=== PATIENT | female | born 1995 | race Caucasian/White ===

== ENCOUNTER 2019-10-22 18:10 | Emergency (ER) | payer SELFPAY ==
--- NOTE | 2019-10-22 18:52 | EDM.PDOC ---
ED HPI GENERAL MEDICAL PROBLEM - General Chief Complaint: Lower Extremity Injury/Pain Stated Complaint: LEFT LEG PAIN Time Seen by Provider: 10/22/19 18:47 Source of Information: Reports: Patient History Limitations: Reports: No Limitations - History of Present Illness INITIAL COMMENTS - FREE TEXT/NARRATIVE: HISTORY AND PHYSICAL: History of present illness: Patient is a 24-year-old female presents to the ED With complaint of left knee pain. Patient states she fell in the shower 2 days ago landing on the inside of the knee. She states she is hardly able to bear weight on the left. She denies proximal hip pain or distal pain, numbness or tingling. Review of systems: As per history of present illness and below otherwise all systems reviewed and negative. Past medical history: As per history of present illness and as reviewed below otherwise noncontributory. Surgical history: As per history of present illness and as reviewed below otherwise noncontributory. Social history: No reported history of drug or alcohol abuse. Family history: As per history of present illness and as reviewed below otherwise noncontributory. Physical exam: General: Patient sitting comfortably in no acute distress and nontoxic appearing HEENT: Atraumatic, normocephalic, pupils reactive, negative for conjunctival pallor or scleral icterus, mucous membranes moist, throat clear, neck supple, nontender, trachea midline. No meningeal signs. Lungs: Clear to auscultation, breath sounds equal bilaterally, chest nontender. Heart: S1S2, regular, negative for clicks, rubs, or overt murmur. Abdomen: Soft, nondistended, nontender. Negative for masses or hepatosplenomegaly. Negative for costovertebral tenderness. No rigidity, rebound , guarding. Pelvis: Stable nontender. Genitourinary: Deferred. Rectal: Deferred. Extremities: No obvious swelling or deformity, skin is intact. Pain to palpation of anterior knee. negative for cords or calf pain. Neurovascular unremarkable. Neuro: Awake, alert, oriented. Cranial nerves II through XII unremarkable. Cerebellum unremarkable. Motor and sensory unremarkable throughout. Exam nonfocal. Notes: Diagnostics: x-ray left knee Therapeutics: Crutches Prescriptions: none Impression: Left knee injury Plan: 1. Ice, elevate, and motrin or tylenol as needed 2. Follow up with orthopedics, please call the number provided to schedule an appointment 3. Return to ED as needed as discussed Definitive disposition and diagnosis as appropriate pending reevaluation and review of above. left knee Pain Score (Numeric/FACES): 10 - Related Data Allergies Allergy/AdvReac Type Severity Reaction Status Date / Time No Known Allergies Allergy Verified 10/22/19 18:25 Home Meds: Home Meds . [No Known Home Meds] 10/22/19 [History] Past Medical History - Past Health History Medical/Surgical History: Denies Medical/Surgical History Respiratory History: Reports: Asthma Social & Family History - Family History Family Medical History: Noncontributory - Tobacco Use Smoking Status *Q: Current Every Day Smoker Years of Tobacco use: 2 Packs/Tins Daily: 0.5 - Recreational Drug Use Recreational Drug Use: No Review of Systems - Review of Systems Review Of Systems: Comprehensive ROS is negative, except as noted in HPI. ED EXAM, GENERAL - Physical Exam Exam: See Below (see dictation) Course - Vital Signs Last Recorded V/S: Last Vital Signs Temp 97.8 F 10/22/19 18:23 Pulse 98 10/22/19 18:23 Resp 18 10/22/19 18:23 BP 147/87 H 10/22/19 18:23 Pulse Ox 97 10/22/19 18:23 - Orders/Labs/Meds Orders: Active Orders 24 hr Category Date Time Status DME for Discharge [COMM] Stat Oth 10/22/19 19:47 Ordered Departure - Departure Time of Disposition: 19:47 Disposition: Home, Self-Care 01 Condition: Good Clinical Impression: Left knee injury - Discharge Information Instructions: Musculoskeletal Pain Referrals: PCP,None [Primary Care Provider] - Forms: ED Department Discharge Additional Instructions: The following information is given to patients seen in the emergency department who are being discharged to home. This information is to outline your options for follow-up care. We provide all patients seen in our emergency department with a follow-up referral. The need for follow-up, as well as the timing and circumstances, are variable depending upon the specifics of your emergency department visit. If you don't have a primary care physician on staff, we will provide you with a referral. We always advise you to contact your personal physician following an emergency department visit to inform them of the circumstance of the visit and for follow-up with them and/or the need for any referrals to a consulting specialist. The emergency department will also refer you to a specialist when appropriate. This referral assures that you have the opportunity for follow-up care with a specialist. All of these measure are taken in an effort to provide you with optimal care, which includes your follow-up. Under all circumstances we always encourage you to contact your private physician who remains a resource for coordinating your care. When calling for follow-up care, please make the office aware that this follow-up is from your recent emergency room visit. If for any reason you are refused follow-up, please contact the [facility] Emergency Department at and asked to speak to the emergency department charge nurse. [facility] [address], [address] [place] [address] 1. Ice, elevate, and motrin or tylenol as needed 2. Follow up with orthopedics, please call the number provided to schedule an appointment 3. Return to ED as needed as discussed Sepsis Event Note - Evaluation Sepsis Screening Result: No Definite Risk - Focused Exam Date Exam was Performed: 10/23/19 Time Exam was Performed: 13:54 - My Orders Last 24 Hours: My Active Orders 10/22/19 19:47 DME for Discharge [COMM] Stat - Assessment/Plan Last 24 Hours: My Active Orders 10/22/19 19:47 DME for Discharge [COMM] Stat
--- NOTE | 2019-10-22 19:38 | CR ---
Left knee: AP, crosstable lateral and sunrise patellar views were obtained of the right knee. Medial and lateral joint compartments maintained in height. Patellofemoral joint is felt to be within normal limits. No joint effusion is seen. No acute fracture or other bony abnormality is seen. Impression: 1. No abnormality is appreciated on 3 view right knee exam. Diagnostic code #1 Study was dictated in MDT
== END 2019-10-22 20:31 | disposition home or self-care (01) ==
LOC: MW.ED 18:10
DX: S89.92XA Unspecified injury of left lower leg, initial encounter (principal); F17.210 Nicotine dependence, cigarettes, uncomplicated; W19.XXXA Unspecified fall, initial encounter
CPT/HCPCS: 73562-26-LT; 73562-LT; 99282; 99283-25

== ENCOUNTER 2020-03-19 06:38 | Emergency (ER) | payer SELFPAY ==
--- NOTE | 2020-03-19 07:08 | EDM.PDOC ---
ED HPI GENERAL MEDICAL PROBLEM - General Chief Complaint: Lower Extremity Injury/Pain Stated Complaint: RIGHT FOOT POSSIBLY BROKEN Time Seen by Provider: 03/19/20 06:57 Source of Information: Reports: Patient - History of Present Illness INITIAL COMMENTS - FREE TEXT/NARRATIVE: History of present illness: 25-year-old female presenting with right foot pain after an injury yesterday. Apparently she lives in an and was climbing up to swat a fly and fell down several feet onto her right foot. Pain is located on the plantar surface of the foot just proximal to the toes. No other injury. She has been able to stand and bear weight upon it but she reports it hurts much more with standing and bearing weight. It is comfortable when she is not standing and bearing weight on it. She declined any pain medications here and she has not taken anything at home. Review of systems: As per history of present illness and below otherwise all systems reviewed and negative. Past medical history: Asthma As per history of present illness and as reviewed below otherwise noncontributory. Surgical history: As per history of present illness and as reviewed below otherwise noncontributory. None Social history: No reported history of drug or alcohol abuse. Daily smoker Family history: As per history of present illness and as reviewed below otherwise noncontributory. Physical exam: GEN: no acute distress, well appearing HEENT: Atraumatic, normocephalic, mucous membranes moist Neck: supple Lungs: No respiratory distress. Heart: RRR Extremities: Tender to palpation right foot, plantar surface, no midfoot tenderness or fifth metatarsal tenderness, no ecchymosis. Normal cap refill and distally neurovascularly intact. No ankle tenderness, full range of motion at the ankle, no proximal fibular tenderness, no knee pain or tenderness, full range of motion, remainder of right lower extremity and all other extremities are nontender and atraumatic Neuro: Awake, alert, oriented. Neuro Exam nonfocal. Skin: warm, dry, no lesions, no ecchymosis Diagnostics: X-ray right foot Therapeutics: Crutches MDM: Impression: [] Plan: [] Definitive disposition and diagnosis as appropriate pending reevaluation and review of above. right foot Pain Score (Numeric/FACES): 2 - Related Data Allergies Allergy/AdvReac Type Severity Reaction Status Date / Time No Known Allergies Allergy Verified 03/19/20 06:54 Home Meds: Home Meds . [No Known Home Meds] 10/22/19 [History] Past Medical History - Past Health History Medical/Surgical History: Denies Medical/Surgical History HEENT History: Reports: None Cardiovascular History: Reports: None Respiratory History: Reports: Asthma Gastrointestinal History: Reports: None Genitourinary History: Reports: None ACADEMIC SUPPORT ASSISTANT History: Reports: None Musculoskeletal History: Reports: None Neurological History: Reports: None Psychiatric History: Reports: None Endocrine/Metabolic History: Reports: None Insulin Pump Model and Newscast Producer: None Hematologic History: Reports: None Immunologic History: Reports: None Oncologic (Cancer) History: Reports: None Dermatologic History: Reports: None - Infectious Disease History Infectious Disease History: Reports: None - Past Surgical History Head Surgeries/Procedures: Reports: None Social & Family History - Family History Family Medical History: Noncontributory - Tobacco Use Smoking Status *Q: Current Every Day Smoker Years of Tobacco use: 1 Packs/Tins Daily: 0.5 - Recreational Drug Use Recreational Drug Use: No Review of Systems - Review of Systems Review Of Systems: See Below (See HPI) ED EXAM, GENERAL - Physical Exam Exam: See Below (See HPI) Course - Vital Signs Text/Narrative:: Right foot with fracture of the fourth metatarsal, minimally displaced. Patient with pain well-tolerated. Will place in splint and crutches, avoid weightbearing, refer for follow-up with podiatry or orthopedic surgery. DME: Type: Right foot posterior splint Reason: Fourth metatarsal fracture Benefit to patient: Immobilize fracture Length of use: Until seen and evaluated by podiatry or orthopedics Last Recorded V/S: Last Vital Signs Temp 97 F 03/19/20 06:55 Pulse 106 H 03/19/20 06:55 Resp 18 03/19/20 06:55 BP 123/87 03/19/20 06:55 Pulse Ox 98 03/19/20 06:55 - Orders/Labs/Meds Orders: Active Orders 24 hr Category Date Time Status DME for Discharge [COMM] Stat Oth 03/19/20 07:02 Ordered DME for Discharge [COMM] Stat Oth 03/19/20 08:05 Ordered - Re-Assessments/Exams Free Text/Narrative Re-Assessment/Exam: 03/19/20 08:07 X-ray results, need for follow-up and need for immobilization discussed with patient. Departure - Departure Time of Disposition: 08:06 Disposition: Home, Self-Care 01 Condition: Good Clinical Impression: Metatarsal fracture Qualifiers: Encounter type: initial encounter Metatarsal bone: fourth Fracture type: closed Laterality: right - Discharge Information Instructions: Crutch Use, Adult, [id number], Metatarsal Fracture With Rehab- SportsMed, Cast or Splint Care, Adult, [id number], Metatarsal Fracture Referrals: PCP,Kavitha [Primary Care Provider] - Cheng Melchor DPM [Physician] - 2 Days Forms: ED Department Discharge, ED Return to Work/School Form Additional Instructions: You may take Tylenol or ibuprofen for your pain. Avoid putting weight on your foot at all times. Keep the splint on at all times and do not get it wet. Please follow-up with either the orthopedic surgery clinic or the pretzel twisting machine operator listed below, whoever can see you sooner. Keep the foot elevated to minimize swelling. Apply ice to the foot for the next few days for 20 minutes at a time, 3-4 times a day, do not apply ice directly to the skin. The following information is given to patients seen in the emergency department who are being discharged to home. This information is to outline your options for follow-up care. We provide all patients seen in our emergency department with a follow-up referral. The need for follow-up, as well as the timing and circumstances, are variable depending upon the specifics of your emergency department visit. If you don't have a primary care physician on staff, we will provide you with a referral. We always advise you to contact your personal physician following an emergency department visit to inform them of the circumstance of the visit and for follow-up with them and/or the need for any referrals to a consulting specialist. The emergency department will also refer you to a specialist when appropriate. This referral assures that you have the opportunity for follow-up care with a specialist. All of these measure are taken in an effort to provide you with optimal care, which includes your follow-up. Under all circumstances we always encourage you to contact your private physician who remains a resource for coordinating your care. When calling for follow-up care, please make the office aware that this follow-up is from your recent emergency room visit. If for any reason you are refused follow-up, please contact the [facility] Emergency Department at and asked to speak to the emergency department charge nurse. [facility] Professional [address], [address] [place] [address] Sepsis Event Note (ED) - Evaluation Sepsis Screening Result: No Definite Risk - Focused Exam Vital Signs: Vital Signs Temp Pulse Resp BP Pulse Ox 03/19/20 06:55 97 F 106 H 18 123/87 98 - My Orders Last 24 Hours: My Active Orders 03/19/20 07:02 DME for Discharge [COMM] Stat 03/19/20 08:05 DME for Discharge [COMM] Stat - Assessment/Plan Last 24 Hours: My Active Orders 03/19/20 07:02 DME for Discharge [COMM] Stat 03/19/20 08:05 DME for Discharge [COMM] Stat
--- NOTE | 2020-03-19 08:03 | CR ---
Right foot: 3 views of the right foot were obtained. Comparison: No prior foot study. Fracture is identified within the distal head of the fourth metatarsal. This presumably is acute. Slight displacement is noted. No additional fracture or other bony abnormality is appreciated. Impression: 1. Slightly displaced distal fourth metatarsal head fracture. This is most likely acute. 2. No additional abnormality is appreciated on right foot study. Diagnostic code #3 Study was dictated in MDT
== END 2020-03-19 08:58 | disposition home or self-care (01) ==
LOC: MW.ED 06:38
DX: S92.341A Displaced fracture of fourth metatarsal bone, right foot, initial encounter for closed fracture (principal); J45.909 Unspecified asthma, uncomplicated; F17.210 Nicotine dependence, cigarettes, uncomplicated; W17.89XA Other fall from one level to another, initial encounter
CPT/HCPCS: 29515; 73630-26-RT; 73630-RT; 99282; 99283-25

== ENCOUNTER 2020-10-20 13:28 | Emergency (ER) | payer MEDICAID, MEDICARE, OTHER ==
[2020-10-20] MEDS ORDERED: Sodium Chloride 0.9% 1,000 ML IV ONE ×2 (13:56→14:10)
[2020-10-20] MEDS ORDERED: Ondansetron 4 MG/2 ML SDV IVPUSH ONE (14:09)
--- NOTE | 2020-10-20 14:09 | PCM.EKG ---
#1 Interpretation EKG Date: 10/20/20 Time: 14:05 Rhythm: Other (sinus tachy) Rate (Beats/Min): 131 ST-T: Normal
[2020-10-20] MEDS ORDERED: MVI, Adult with Vitamin K 10 ML, Thiamine 100 MG, Folic Acid 1 MG in Sodium Chloride 0.... IV ONE ×4 (14:35)
--- NOTE | 2020-10-20 14:53 | CR ---
INDICATION: pain/sob. 1 image sent. TECHNIQUE: Chest 1 view. COMPARISON: None. FINDINGS: Cardiovascular and mediastinum: Heart size and vasculature are normal in caliber and appearance. Mediastinum is within normal limits. Lungs and pleural space: Lungs are clear. No sign of infiltrate or mass. No sign of pleural effusion. No pneumothorax. Bones and soft tissues: No significant findings. IMPRESSION: Unremarkable chest. Dictated by: Sav Thacker MD @ 10/20/2020 14:51:21 (Electronically Signed)
[2020-10-20] MEDS ORDERED: Piperacillin/Tazobactam 4.5 GM in Sodium Chloride 0.9% 100 ML IV ONE (14:55)
[2020-10-20] MEDS ORDERED: Vancomycin 1.5 GM in Sodium Chloride 0.9% 500 ML IV STA (14:56)
[2020-10-20 14:58] LABS: BLOOD UREA NITROGEN,BUN 5 mg/dL (7.0-18.0); CARBON DIOXIDE,CO2 29.1 mmol/L (21.0-32.0); CHLORIDE,CL 90 mmol/L (98-107); GLUCOSE RANDOM 118 mg/dL (74-106); POTASSIUM,K 2.7 mmol/L (3.5-5.1); SODIUM,NA 129 mmol/L (136-145)
[2020-10-20] MEDS ORDERED: Potassium Chloride Riders 40 MEQ in Premix Bag 1 BAG IV ONE (15:09)
[2020-10-20 15:29] LABS: CORONAVIRUS COVID-19 NAA NEGATIVE (NEGATIVE); INFLUENZA A NAA NEGATIVE (NEGATIVE); INFLUENZA B NAA NEGATIVE (NEGATIVE)
--- NOTE | 2020-10-20 16:28 | US ---
INDICATION: Transaminitis with obstructive pattern. TECHNIQUE: Ultrasound abdomen limited. Sonographic images of the right upper quadrant were obtained using franks-scale and color Doppler images. COMPARISON: None FINDINGS: Liver: Echogenic hepatic parenchyma. No masses. No intrahepatic biliary dilatation. Gallbladder: Gallbladder sludge. Normal wall thickness. No pericholecystic fluid. Negative sonographic Jauregui`s sign. Common bile duct: 7 mm. Pancreas: Imaged portion is unremarkable. Right kidney: Normal in size. Normal echotexture and cortex. No masses, stones, or hydronephrosis. Vasculature: Proximal abdominal aorta and IVC are unremarkable. IMPRESSION: : 1. Mother expected biliary ductal dilatation with the common bile duct measuring 7 mm of uncertain etiology. Consider further evaluation with MRCP and/or GI consultation. 2. Hepatic steatosis. 3. Gallbladder sludge. Dictated by Sav Acosta MD @ Oct 20 2020 4:24PM Signed by Dr. aSv Acosta @ Oct 20 2020 4:28PM
[2020-10-20] MEDS ORDERED: VANCOmycin 1.5 GM/300 ML 1.5 GM in Premix Bag 1 BAG IV ONE (16:30)
[2020-10-20] MEDS ORDERED: Iopamidol 755 MG/ML 500 ML Multipack Bottle IVPUSH STA (17:07)
[2020-10-20] MEDS ORDERED: Potassium Chloride 20 MEQ Tab.ER PO ONE (17:21)
--- NOTE | 2020-10-20 17:56 | CT ---
INDICATION: Abdominal pain, nausea and vomiting. TECHNIQUE: Axial images were obtained from the diaphragm to the pubic symphysis. Reformats were obtained in the coronal and sagittal plane. IV Contrast: 100 cc Isovue 370 Oral Contrast: None COMPARISON: None. FINDINGS: Lower chest: Basilar discoid atelectasis. Liver: Diffusely decreased density of the liver consistent with fatty infiltration without focal lesion. Gallbladder and bile ducts: Unremarkable. No stones or inflammation. No biliary dilatation. Spleen: Unremarkable. Normal in size without mass. Pancreas: Unremarkable. No mass or inflammation. Adrenal glands: Unremarkable. No nodules. Kidneys: Unremarkable. No masses, stones, or hydronephrosis. Vasculature: Unremarkable. GI tract: The stomach is unremarkable. No dilated loops of large or small intestine. Appendix unremarkable. Pelvis: Dominant follicle left ovary measuring 2.3 centimeters. Bones: Unremarkable for age. IMPRESSION: 1. No dilated loops of large or small intestine. 2. Fatty infiltration of the liver. Please note that all CT scans at this facility use dose modulation, iterative reconstruction, and/or weight-based dosing when appropriate to reduce radiation dose to as low as reasonably achievable. Dictated by Jourdan West MD @ Oct 20 2020 5:36PM Signed by Dr. Jourdan West @ Oct 20 2020 5:54PM
[2020-10-20] MEDS ORDERED: LORazepam 2 MG/ML SDV IVPUSH ONE ×2 (18:12→20:19)
--- NOTE | 2020-10-20 20:18 | EDM.PDOC ---
ED HPI GENERAL MEDICAL PROBLEM - General Chief Complaint: General Stated Complaint: NUMBNESS/PAIN IN FEET AND LEGS Time Seen by Provider: 10/20/20 13:29 Source of Information: Reports: Patient History Limitations: Reports: No Limitations - History of Present Illness INITIAL COMMENTS - FREE TEXT/NARRATIVE: HISTORY AND PHYSICAL: History of present illness: Patient is a 25-year-old female, with a history of chronic alcohol use, who presents to the ED today with concern of ascending numbness starting at her feet x1 week. Patient states the numbness and pain started at her feet and has spread up her legs and now is right at her lower abdomen. Patient states today she started having numbness as well in her hands spreading up her forearms. Patient states that the reason she came to be evaluated today is because she is having difficulties with ambulation due to the numbness in her feet and is stumbling because she cannot feel the bottoms of her feet. Patient states that she is able to move her feet and her toes but just has altered sensation of her feet. Patient states that she has not been able to eat or drink for 2 weeks as she vomits immediately after. Patient states that she also has been coughing so hard that she vomits. And patient states often her vomiting is triggered with coughing but states that she does vomit without coughing as well. Patient stat es she does have a history of asthma so does have a chronic cough. Patient states that she does have a "tightening "sensation across her upper abdomen but denies any associated abdominal pain. Patient states that she is able to drink alcohol, however, as this improves her nausea and vomiting. Patient states that she has been consistently vomiting for 2 weeks. Patient drinks states that she "drinks a lot "and drinks hard alcohol and drinks all day every day and 1/5 by herself "easily." Patient states that she has not stopped drinking long enough in 1 year to find out if she withdrawals but states that she has never prior had withdrawal symptoms and has never gotten shaky or had any issues with stopping drinking. Patient denies any other health history. Patient states she had her last menstrual cycle 2 weeks ago so does not believe to be but she is sexually active with her significant other. Denies bilious/hematemesis. Patient denies fever, chills, chest pain, shortness of breath. Denies headache, neck stiff ness, change in vision, syncope, or near syncope. Denies abdominal pain, diarrhea, constipation, or dysuria. Has not noted any blood in urine or stool. Review of systems: As per history of present illness and below otherwise all systems reviewed and negative. Past medical history: As per history of present illness and as reviewed below otherwise noncontr ibutory. Surgical history: As per history of present illness and as reviewed below otherwise noncontributory. Social history: See social history for further information Family history: As per history of present illness and as reviewed below otherwise noncontributory. Physical exam: General: Patient is alert, oriented, and in no acute distress. Patient laying comfortably on exam table. Tachycardic 130s otherwise vitals stable and reviewed by me. HEENT: Atraumatic, normocephalic, pupils equal and reactive bilaterally, negative for conjunctival pallor or scleral icterus, mucous membranes dry, throat clear, neck supple, nontender, trachea midline. No drooling or trismus noted. No meningeal signs. No hot potato voice noted. Lungs: Clear to auscultation, breath sounds equal bilaterally, chest nontender. Heart: S1S2, regular rate and rhythm without overt murmur Abdomen: Soft, nondistended, nontender. Negative for masses or hepatosplenomegaly. Negative for costovertebral tenderness. Pelvis: Stable nontender. Genitourinary: Deferred. Rectal: Deferred. Skin: Intact, warm, dry. No lesions or rashes noted. Extremities: Atraumatic, negative for cords or calf pain. Neurovascular unremark able. Neuro: Patient unable to complete heel-to-toe gait without falling. Normal gait produced stumbling but patient was able to complete. Pronator drift negative. Sharp and dull sensation intact. Light sensation intact. Pupils equal bilaterally. Rapid rhythmic movements within normal limits. Awake, alert, oriented. Cranial nerves II through XII unremarkable. Motor and sensory unremarkable throughout. Exam nonfocal. Notes: On arrival to the ED, patient is tachycardic 130s on exam, otherwise she is vitally stable without any abdominal pain. We will give patient banana bag as well as perform routine lab work, EKG, CXR and reassess vitals after fluids given. EKG shows sinus tachycardia, no STEMI. See Dr. Boswell's dictation for specific EKG interpretation. Alcohol withdraw is considered in relation to tachycardia; however, patient is not tremulous on exam with CIWA of 1 with low suspicion of ETOH withdraw being the cause of tachycardia at this time. CBC does show leukocytosis of 16. Will add lactate and blood cultures with concern of possible sepsis in relation to patient's elevated heart rate. Zosyn 4.5mg IV and vancomycin 1.5mg given empirically and banana bag is currently still running. HR still 130s and otherwise vitally stable. CMP shows obstructive transaminitis/elevated bili/elevated alk phos. RUQ US will be performed. Patient also has hypokalemia of 2.7 and will replete potassium/ magnesium added onto diagnostics. Patient has difficulty with K rider and is requesting p.o. potassium. 40 mEq of potassium given orally without vomiting. Hyponatremia 129. Ddimer negative. Hcg serum is negative. COVID negative. CXR shows no acute cardiopulmonary findings. RUQ US shows biliary duct dilation with the common bile duct measuring 7 mm of uncertain etiology. Hepatic steatosis. Gallbladder sludge. Abd/Pelvic CT w cont shows no dilated loops of large or small intestine. Fatty infiltration of liver. Patient now given 1L banana bag, 2 additional L NS, Ativan, Vancomycin, Zosyn and continues to be tachycardic 130s otherwise vitally stable and comfortable on exam without vomiting. Patient is unable to get an MRCP at this time at our facility. However, I am concerned for sepsis with possible ascending cholangitis with need for ERCP. I did call and speak to the GI specialist at [facility], who stats that at this time their facility is unable to perform ERCP and states that patient requires ERCP based off of her presentation/labs/dilated CBD on US. I called and spoke to the hospitalist for [facility], Dr. Starks, who states that there is ERCP capability at their facility, and thoroughly discussed patients case. Accepting of transfer. Patient has been stable throughout stay in ED and I believe is stable for EMS transfer as agreed with Dr. Starks. EMS arranged and planned to arrive in 30 minutes. EMS is at bedside and at this time patient remains comfortable, tachycardic 130s, otherwise vitals stable and comfortable on exam. Diagnostics: EKG, CBC, CMP, UA, CXR, Trop., ddimer, lactate, blood cultures x 2, Magnesium, RUQ US, Abd/Pelvic CT w cont, pertussis Therapeutics: Banana bag, NSx2, Ativan, Zosyn, Vancomycin, Potassium 40mEg Impression: Obstructive common bile duct Sepsis Hypokalemia Hyponatremia Chronic alcohol use Plan: Transfer to [facility] via EMS Definitive disposition and diagnosis as appropriate pending reevaluation and review of above. feet Pain Score (Numeric/FACES): 3 - Related Data Allergies Allergy/AdvReac Type Severity Reaction Status Date / Time No Known Allergies Allergy Verified 10/20/20 13:50 Home Meds: Home Meds . [No Known Home Meds] 10/22/19 [History] Past Medical History - Past Health History Medical/Surgical History: Denies Medical/Surgical History HEENT History: Reports: None Cardiovascular History: Reports: None Respiratory History: Reports: Asthma Gastrointestinal History: Reports: None Genitourinary History: Reports: None MUD GRINDER History: Reports: None Musculoskeletal History: Reports: None Neurological History: Reports: None Psychiatric History: Reports: None Endocrine/Metabolic History: Reports: None Insulin Pump Model and Senior Publications Specialist: None Hematologic History: Reports: None Immunologic History: Reports: None Oncologic (Cancer) History: Reports: None Dermatologic History: Reports: None - Infectious Disease History Infectious Disease History: Reports: None - Past Surgical History Head Surgeries/Procedures: Reports: None Social & Family History - Family History Family Medical History: No Pertinent Family History - Tobacco Use Packs/Tins Daily: 1 - Caffeine Use Caffeine Use: Reports: None - Alcohol Use Date of Last Drink: 10/20/20 Time of Last Drink: 03:00 - Recreational Drug Use Recreational Drug Use: No ED ROS GENERAL - Review of Systems Review Of Systems: Comprehensive ROS is negative, except as noted in HPI. ED EXAM, GENERAL - Physical Exam Exam: See Below (see dictation) Course - Vital Signs Last Recorded V/S: Last Vital Signs Temp 98.6 F 10/20/20 13:42 Pulse 123 H 10/20/20 18:47 Resp 18 10/20/20 18:17 BP 132/86 10/20/20 18:47 Pulse Ox 96 10/20/20 18:47 - Orders/Labs/Meds Orders: Active Orders 24 hr Category Date Time Status Cardiac Monitoring [RC] . DIRECTED Care 10/20/20 13:56 Active EKG Documentation Completion [RC] STAT Care 10/20/20 13:56 Active B PERTUSSIS IGG/M/A AB [REF] Stat Lab 10/20/20 14:27 Received BORD PERTUSS NUCLEIC ACID AMP [MREF] Stat Lab 10/20/20 14:38 Received CULTURE BLOOD [BC] Stat Lab 10/20/20 15:10 Received CULTURE BLOOD [BC] Stat Lab 10/20/20 15:28 Received CULTURE URINE [RM] Stat Lab 10/20/20 14:10 Received Blood Culture x2 Reflex Set [OM.PC] Stat Oth 10/20/20 14:57 Ordered Labs: Laboratory Tests 10/20/20 10/20/20 10/20/20 Range/Units 14:10 14:27 14:27 WBC 16.09 H (4.0-11.0) K/uL RBC 5.13 (4.30-5.90) M/uL Hgb 18.6 H (12.0-16.0) g/dL Hct 50.7 H (36.0-46.0) % MCV 98.8 H (80.0-98.0) fL MCH 36.3 H (27.0-32.0) pg MCHC 36.7 (31.0-37.0) g/dL RDW Std Deviation 46.8 (28.0-62.0) fl RDW Coeff of Leonard 13 (11.0-15.0) % Plt Count 288 (150-400) K/uL MPV 10.50 (7.40-12.00) fL Neut % (Auto) 73.7 (48.0-80.0) % Lymph % (Auto) 15.3 L (16.0-40.0) % Hendry % (Auto) 10.4 (0.0-15.0) % Eos % (Auto) 0.4 (0.0-7.0) % Baso % (Auto) 0.2 (0.0-1.5) % Neut # (Auto) 11.9 H (1.4-5.7) K/uL Lymph # (Auto) 2.5 H (0.6-2.4) K/uL Hendry # (Auto) 1.7 H (0.0-0.8) K/uL Eos # (Auto) 0.1 (0.0-0.7) K/uL Baso # (Auto) 0.0 (0.0-0.1) K/uL Nucleated RBC % 0.0 /100WBC Nucleated RBCs # 0 K/uL D-Dimer, Quantitative (0.0-0.50) mg/L FEU Lactate (0.20-2.00) mmol/L Sodium 129 L (136-145) mmol/L Potassium 2.7 L (3.5-5.1) mmol/L Chloride 90 L (98-107) mmol/L Carbon Dioxide 29.1 (21.0-32.0) mmol/L BUN 5 L (7.0-18.0) mg/dL Creatinine 0.8 (0.6-1.0) mg/dL Est Cr Clr Drug Dosing 110.39 mL/min Estimated GFR (MDRD) > 60.0 ml/min Glucose 118 H (74-106) mg/dL Calcium 9.3 (8.5-10.1) mg/dL Magnesium (1.8-2.4) mg/dL Total Bilirubin 2.3 H (0.2-1.0) mg/dL AST 112 H (15-37) IU/L ALT 179 H (14-63) IU/L Alkaline Phosphatase 124 H (46-116) U/L Troponin I < 0.050 (0.000-0.056) ng/mL Total Protein 7.8 (6.4-8.2) g/dL Albumin 3.5 (3.4-5.0) g/dL Globulin 4.3 H (2.6-4.0) g/dL Albumin/Globulin Ratio 0.8 L (0.9-1.6) HCG, Qual (NEG) Urine Color DARK YELLOW Urine Appearance SLT CLOUDY Urine pH 5.0 (5.0-8.0) Ur Specific [place] 1.010 (1.001-1.035) Urine Protein TRACE H (NEGATIVE) mg/dL Urine Glucose (UA) NEGATIVE (NEGATIVE) mg/dL Urine Ketones TRACE H (NEGATIVE) mg/dL Urine Occult Blood TRACE-INTACT H (NEGATIVE) Urine Nitrite POSITIVE H (NEGATIVE) Urine Bilirubin MODERATE H (NEGATIVE) Urine Ictotest NEGATIVE Urine Urobilinogen >=8.0 H (<2.0) EU/dL Ur Leukocyte Esterase TRACE H (NEGATIVE) Urine RBC 0-3 (0-2/HPF) Urine WBC 1-5 (0-5/HPF) Ur Epithelial Cells FEW (NONE-FEW) Urine Bacteria 2+ H (NEGATIVE) Urine Mucus LIGHT (NONE-MOD) Influenza Type A RNA (NEGATIVE) Influenza Type B RNA (NEGATIVE) SARS-CoV-2 RNA (ABRAM) (NEGATIVE) 10/20/20 10/20/20 10/20/20 Range/Units 14:27 14:27 14:27 WBC (4.0-11.0) K/uL RBC (4.30-5.90) M/uL Hgb (12.0-16.0) g/dL Hct (36.0-46.0) % MCV (80.0-98.0) fL MCH (27.0-32.0) pg MCHC (31.0-37.0) g/dL RDW Std Deviation (28.0-62.0) fl RDW Coeff of Leonard (11.0-15.0) % Plt Count (150-400) K/uL MPV (7.40-12.00) fL Neut % (Auto) (48.0-80.0) % Lymph % (Auto) (16.0-40.0) % Hendry % (Auto) (0.0-15.0) % Eos % (Auto) (0.0-7.0) % Baso % (Auto) (0.0-1.5) % Neut # (Auto) (1.4-5.7) K/uL Lymph # (Auto) (0.6-2.4) K/uL Hendry # (Auto) (0.0-0.8) K/uL Eos # (Auto) (0.0-0.7) K/uL Baso # (Auto) (0.0-0.1) K/uL Nucleated RBC % /100WBC Nucleated RBCs # K/uL D-Dimer, Quantitative < 0.19 (0.0-0.50) mg/L FEU Lactate (0.20-2.00) mmol/L Sodium (136-145) mmol/L Potassium (3.5-5.1) mmol/L Chloride (98-107) mmol/L Carbon Dioxide (21.0-32.0) mmol/L BUN (7.0-18.0) mg/dL Creatinine (0.6-1.0) mg/dL Est Cr Clr Drug Dosing mL/min Estimated GFR (MDRD) ml/min Glucose (74-106) mg/dL Calcium (8.5-10.1) mg/dL Magnesium 1.9 (1.8-2.4) mg/dL Total Bilirubin (0.2-1.0) mg/dL AST (15-37) IU/L ALT (14-63) IU/L Alkaline Phosphatase (46-116) U/L Troponin I (0.000-0.056) ng/mL Total Protein (6.4-8.2) g/dL Albumin (3.4-5.0) g/dL Globulin (2.6-4.0) g/dL Albumin/Globulin Ratio (0.9-1.6) HCG, Qual NEGATIVE (NEG) Urine Color Urine Appearance Urine pH (5.0-8.0) Ur Specific [place] (1.001-1.035) Urine Protein (NEGATIVE) mg/dL Urine Glucose (UA) (NEGATIVE) mg/dL Urine Ketones (NEGATIVE) mg/dL Urine Occult Blood (NEGATIVE) Urine Nitrite (NEGATIVE) Urine Bilirubin (NEGATIVE) Urine Ictotest Urine Urobilinogen (<2.0) EU/dL Ur Leukocyte Esterase (NEGATIVE) Urine RBC (0-2/HPF) Urine WBC (0-5/HPF) Ur Epithelial Cells (NONE-FEW) Urine Bacteria (NEGATIVE) Urine Mucus (NONE-MOD) Influenza Type A RNA (NEGATIVE) Influenza Type B RNA (NEGATIVE) SARS-CoV-2 RNA (ABRAM) (NEGATIVE) 10/20/20 10/20/20 Range/Units 14:38 14:53 WBC (4.0-11.0) K/uL RBC (4.30-5.90) M/uL Hgb (12.0-16.0) g/dL Hct (36.0-46.0) % MCV (80.0-98.0) fL MCH (27.0-32.0) pg MCHC (31.0-37.0) g/dL RDW Std Deviation (28.0-62.0) fl RDW Coeff of Leonard (11.0-15.0) % Plt Count (150-400) K/uL MPV (7.40-12.00) fL Neut % (Auto) (48.0-80.0) % Lymph % (Auto) (16.0-40.0) % Hendry % (Auto) (0.0-15.0) % Eos % (Auto) (0.0-7.0) % Baso % (Auto) (0.0-1.5) % Neut # (Auto) (1.4-5.7) K/uL Lymph # (Auto) (0.6-2.4) K/uL Hendry # (Auto) (0.0-0.8) K/uL Eos # (Auto) (0.0-0.7) K/uL Baso # (Auto) (0.0-0.1) K/uL Nucleated RBC % /100WBC Nucleated RBCs # K/uL D-Dimer, Quantitative (0.0-0.50) mg/L FEU Lactate 1.4 (0.20-2.00) mmol/L Sodium (136-145) mmol/L Potassium (3.5-5.1) mmol/L Chloride (98-107) mmol/L Carbon Dioxide (21.0-32.0) mmol/L BUN (7.0-18.0) mg/dL Creatinine (0.6-1.0) mg/dL Est Cr Clr Drug Dosing mL/min Estimated GFR (MDRD) ml/min Glucose (74-106) mg/dL Calcium (8.5-10.1) mg/dL Magnesium (1.8-2.4) mg/dL Total Bilirubin (0.2-1.0) mg/dL AST (15-37) IU/L ALT (14-63) IU/L Alkaline Phosphatase (46-116) U/L Troponin I (0.000-0.056) ng/mL Total Protein (6.4-8.2) g/dL Albumin (3.4-5.0) g/dL Globulin (2.6-4.0) g/dL Albumin/Globulin Ratio (0.9-1.6) HCG, Qual (NEG) Urine Color Urine Appearance Urine pH (5.0-8.0) Ur Specific [place] (1.001-1.035) Urine Protein (NEGATIVE) mg/dL Urine Glucose (UA) (NEGATIVE) mg/dL Urine Ketones (NEGATIVE) mg/dL Urine Occult Blood (NEGATIVE) Urine Nitrite (NEGATIVE) Urine Bilirubin (NEGATIVE) Urine Ictotest Urine Urobilinogen (<2.0) EU/dL Ur Leukocyte Esterase (NEGATIVE) Urine RBC (0-2/HPF) Urine WBC (0-5/HPF) Ur Epithelial Cells (NONE-FEW) Urine Bacteria (NEGATIVE) Urine Mucus (NONE-MOD) Influenza Type A RNA NEGATIVE (NEGATIVE) Influenza Type B RNA NEGATIVE (NEGATIVE) SARS-CoV-2 RNA (ABRAM) NEGATIVE (NEGATIVE) Meds: Medications Discontinued Medications Generic Name Dose Route Start Last Admin Trade Name Freq PRN Reason Stop Dose Admin Sodium Chloride 1,000 mls @ 999 mls/hr 10/20/20 13:56 10/20/20 14:24 Normal Saline IV 10/20/20 14:56 999 mls/hr BOLUS ONE Administration Sodium Chloride 1,000 mls @ 999 mls/hr 10/20/20 14:10 10/20/20 14:36 Normal Saline IV 10/20/20 15:10 0 mls/hr STAT ONE Infusion Multivitamins/Minerals 10 ml/ 1,011.2 mls @ 999 mls/hr 10/20/20 14:35 10/20/20 15:44 Thiamine HCl 100 mg/ Folic IV 10/20/20 15:35 999 mls/hr Acid 1 mg/ Sodium Chloride ONETIME ONE Administration Piperacillin Sod/Tazobactam 100 mls @ 100 mls/hr 10/20/20 14:55 10/20/20 15:44 Sod 4.5 gm/ Sodium Chloride IV 10/20/20 15:54 100 mls/hr ONETIME ONE Administration Vancomycin HCl 1.5 gm/ Sodium 500 mls @ 333 mls/hr 10/20/20 14:56 10/20/20 15:50 Chloride IV 10/20/20 16:26 Not Given NOW STA Potassium Chloride 40 meq/ 100 mls @ 25 mls/hr 10/20/20 15:09 10/20/20 16:06 Premix IV 10/20/20 19:08 0 mls/hr ONETIME ONE Infusion Vancomycin HCl 1.5 gm/ Premix 300 mls @ 200 mls/hr 10/20/20 16:30 10/20/20 17:22 IV 10/20/20 17:59 200 mls/hr ONETIME ONE Administration Iopamidol 100 ml 10/20/20 17:07 10/20/20 17:08 Iopamidol 755 Mg/Ml 500 Ml Multipack Bottle IVPUSH 10/20/20 17:08 100 ml ONETIME STA Administration Lorazepam 1 mg 10/20/20 18:12 10/20/20 18:19 Lorazepam 2 Mg/Ml Sdv IVPUSH 10/20/20 18:13 1 mg ONETIME ONE Administration Lorazepam 1 mg 10/20/20 20:19 Lorazepam 2 Mg/Ml Sdv IVPUSH 10/20/20 20:20 ONETIME ONE Ondansetron HCl 4 mg 10/20/20 14:09 10/20/20 14:25 Ondansetron 4 Mg/2 Ml Sdv IVPUSH 10/20/20 14:10 4 mg ONETIME ONE Administration Potassium Chloride 40 meq 10/20/20 17:21 10/20/20 17:25 Potassium Chloride 20 Meq Tab.Er PO 10/20/20 17:22 40 meq ONETIME ONE Administration Departure - Departure Time of Disposition: 20:36 Disposition: DC/T[facility] to [facility] 02 Clinical Impression: Common bile duct (CBD) obstruction, Hypokalemia, Chronic alcohol use, Hyponatremia Sepsis Qualifiers: Sepsis type: sepsis due to unspecified organism Sepsis acute organ dysfunction status: unspecified Qualified Code(s): A41.9 - Sepsis, unspecified organism - Discharge Information Referrals: PCP,None [Primary Care Provider] - Forms: ED Department Discharge Sepsis Event Note (ED) - Evaluation Sepsis Screening Result: No Definite Risk - Focused Exam Vital Signs: Vital Signs Temp Pulse Resp BP Pulse Ox 10/20/20 18:47 123 H 132/86 96 10/20/20 18:24 122 H 122/86 98 10/20/20 18:17 123 H 18 134/91 H 95 10/20/20 17:17 127 H 17 135/85 98 10/20/20 16:11 124 H 18 113/90 98 10/20/20 15:17 123 H 126/87 96 10/20/20 14:27 128 H 157/83 H 98 10/20/20 13:42 98.6 F 139 H 16 158/112 H 96 - My Orders Last 24 Hours: My Active Orders 10/20/20 13:56 Cardiac Monitoring [RC] . DIRECTED EKG Documentation Completion [RC] STAT 10/20/20 14:10 CULTURE URINE [RM] Stat 10/20/20 14:27 B PERTUSSIS IGG/M/A AB [REF] Stat 10/20/20 14:38 BORD PERTUSS NUCLEIC ACID AMP [MREF] Stat 10/20/20 14:57 Blood Culture x2 Reflex Set [OM.PC] Stat 10/20/20 15:10 CULTURE BLOOD [BC] Stat 10/20/20 15:28 CULTURE BLOOD [BC] Stat - Assessment/Plan Last 24 Hours: My Active Orders 10/20/20 13:56 Cardiac Monitoring [RC] . DIRECTED EKG Documentation Completion [RC] STAT 10/20/20 14:10 CULTURE URINE [RM] Stat 10/20/20 14:27 B PERTUSSIS IGG/M/A AB [REF] Stat 10/20/20 14:38 BORD PERTUSS NUCLEIC ACID AMP [MREF] Stat 10/20/20 14:57 Blood Culture x2 Reflex Set [OM.PC] Stat 10/20/20 15:10 CULTURE BLOOD [BC] Stat 10/20/20 15:28 CULTURE BLOOD [BC] Stat
== END 2020-10-20 20:38 ==
LOC: MW.ED 13:28
DX: A41.9 Sepsis, unspecified organism (principal); K83.1 Obstruction of bile duct; E87.6 Hypokalemia; E87.1 Hypo-osmolality and hyponatremia; F10.20 Alcohol dependence, uncomplicated; J45.909 Unspecified asthma, uncomplicated; Z72.0 Tobacco use; Z20.822 Contact with and (suspected) exposure to COVID-19
CPT/HCPCS: 0240U; 36415; 71045; 74177; 76705; 80053; 81001; 83605; 83735; 84484; 84703; 85025; 85379; 86615; 87040; 87086; 93005; 96365; 96366; 96367; 96375; 99285; A9270; J2060; J2405; J2543; J3370; J3411; J3480; J7030; Q9967; 93010; 99284